=== PATIENT | female | born 1940 | race Caucasian/White ===

== ENCOUNTER 2018-10-06 11:02 | Outpatient (CLI) | payer OTHER, MEDICARE | END 2018-10-06 19:40 | disposition home or self-care (01) | LOC: SRD 11:02 | PROVIDERS: ATTEND Internal Medicine | DX: R05 Cough (principal) | CPT/HCPCS: 71046-TC ==

== ENCOUNTER 2018-10-22 11:19 | Outpatient (CLI) | payer OTHER, MEDICARE | END 2018-10-22 18:25 | disposition home or self-care (01) | LOC: SRD 11:19 | PROVIDERS: ATTEND Internal Medicine | DX: M16.0 Bilateral primary osteoarthritis of hip (principal); R91.8 Other nonspecific abnormal finding of lung field | CPT/HCPCS: 71046-TC; 73502 ==